=== PATIENT | female | born 1970 | race Caucasian/White ===

== ENCOUNTER → 2017-07-17 | Outpatient (CLI) | payer OTHER ==
[~2017-07-17] MED LIST: BUPROPION HCL150 M2 PO; LEVOTHYROXINE88 MCG PO; VICODIN ES 7.51 EAC1 PO; VITAMIN D400 UNIT PO
[2017-07-17 14:57] LABS: TYPE OF FLUID THORACENTESIS
[2017-07-17 15:20] LABS: APPEARANCE HAZY-YELLOW; BODY FLUID RBC'S < 1000 /MM^3 (0-100); BODY FLUID WBC'S 2017 /MM^3 (0-500)
[2017-07-17 15:26] LABS: GLUCOSE 95 mg/dL (70-99); LACTATE DEHYDROGENASE 158 IU/L (20-246); TOTAL PROTEIN 7.4 G/DL (6.4-8.3)
[2017-07-17 15:28] LABS: BODY FLUID GLUCOSE 104 MG/DL; BODY FLUID LDH 227 IU/L; BODY FLUID PROTEIN 5.1 G/DL
[2017-07-17 16:08] LABS: BODY FLUID EOSINOPHILS 67 % (0-25); MONONUCLEAR WBC'S 13 %; POLYNUCLEAR WBC'S 20 % (0-25)
== END | disposition home or self-care (01) ==
LOC: RAD 13:57 → EDSTATUS 14:00
PROVIDERS: Internal Medicine Pulmonary Disease
PROC: 0W993ZZ Drainage of Right Pleural Cavity, Percutaneous Approach (ICD-10-PCS; principal; 2017-07-17)
DX: J90 Pleural effusion, not elsewhere classified (principal)
CPT/HCPCS: 76942; 82945; 82947; 83615; 83615 91; 84155; 84157; 87075; 87116; 87205; 87206; 88108; 88305; 89051